=== PATIENT | female | born 1980 ===

== ENCOUNTER → 2017-06-13 | Outpatient (REF) | LOC: ZZSLMC 12:00 | PROVIDERS: ATTEND Obstetrics & Gynecology | DX: Z02.9 Encounter for administrative examinations, unspecified (principal) | CPT/HCPCS: 88302 ==

== ENCOUNTER → 2017-12-12 | Outpatient (REF) | LOC: ZZSLMC 12:00 | PROVIDERS: ATTEND Obstetrics & Gynecology | DX: N80.0 Endometriosis of uterus (principal) | CPT/HCPCS: 88307 ==